=== PATIENT | male | born 1995 | race Caucasian/White ===

== ENCOUNTER 2022-01-20 13:52 | Emergency (ER) | payer SELFPAY ==
[2022-01-20 14:07] VITALS: BP 113/73; PULSE 78; RESP 18; TEMP 36.2; O2SAT 100
--- NOTE | 2022-01-20 14:13 | ED.EYEPROB ---
HPI - Eye Problem General Chief complaint: Eye Problems Stated complaint: lt eye pain Time Seen by Provider: 01/20/22 14:13 Source: patient Mode of arrival: ambulatory Limitations: no limitations History of Present Illness HPI Narrative: 26-year-old male presents with pain/irritation intermittent blurry vision to both eyes for 2 days. Patient reports that he wore eyeliner and mascara for the first time to a [employer] constitution party 3 days ago. Reports that it was irritating, and later cleaned off with make-up wipes. The following day was itching at eyes and then developed the pain and blurry vision a day later. He does not wear any glasses or contacts. All systems reviewed and negative except as noted above. Related Data Allergies Allergy/AdvReac Type Severity Reaction Status Date / Time No Known Allergies Allergy Verified 01/20/22 14:15 Review of Systems Review of Systems: CONSTITUTIONAL: Denies fever, chills, or sweats. EYES: Reports visual changes, pain. Denies redness, or discharge. ENT: Denies rhinorrhea, congestion, sore throat, or otalgia. CARDIOVASCULAR: Denies chest pain, palpitations, or edema. RESPIRATORY: Denies cough or dyspnea. GASTROINTESTINAL: Denies abdominal pain, nausea, vomiting, or diarrhea. GENITOURINARY: Denies dysuria or hematuria. SKIN: Denies rash or itching. MUSCULOSKELETAL: Denies back pain, joint pain, or myalgia. NEUROLOGIC: Denies headache, numbness, or weakness. PSYCHIATRIC: Denies anxiety or depression. All other systems reviewed are negative, except as documented in HPI. PMFSH Comments At time of signature, agree with nursing past medical, surgical, social and family history. There is no relevant family history pertinent to the presenting complaint. Exam Narrative: GENERAL: This is a well-nourished, well-developed patient, in no apparent distress. HEAD: normocephalic, atraumatic. EYES: PERRL. Sclera clear/white. Vision is grossly intact. Under fluorescein with Waters lamp corneal abrasion noted to both eyes, worse to left eye. EARS: External ears normal NOSE: External nose normal NECK: Neck supple, non-tender without lymphadenopathy, masses or thyromegaly. CARDIOVASCULAR: Regular rate and rhythm without murmurs, gallops, or rubs. RESPIRATORY: Clear to auscultation. Breath sounds equal bilaterally. No wheezes, rales, or rhonchi. SKIN: warm, Dry, intact with no suspicious lesions or rash, good texture and turgor. NEURO: awake, alert, and oriented to person, place and time. There were no obvious focal neurologic abnormalities. EXTREMITIES: Normal range of motion all extremities. Eyes: Eyes/upper lids images: 1. corneal abrasion 2. corneal abrasion Course Course Level of Care: Express Care Visit Vital Signs Vital signs: Vital Signs Temperature 36.2 C L 01/20/22 14:07 Pulse Rate 78 01/20/22 14:07 Respiratory Rate 18 01/20/22 14:07 Blood Pressure 113/73 01/20/22 14:07 Pulse Oximetry 100 01/20/22 14:07 Temperature 36.2 C L 01/20/22 14:07 Pulse Rate 78 01/20/22 14:07 Respiratory Rate 18 01/20/22 14:07 Blood Pressure 113/73 01/20/22 14:07 Pulse Oximetry 100 01/20/22 14:07 Procedures FB Removal Eye Foreign Body #1: Foreign Body Removal Date: 01/20/22 Foreign Body Removal Time: 14:39 Time Out performed: Yes Location: eye (L) and eye (R) Topical anesthetic used: tetracaine (1 drop each eye) Foreign body: other (No foreign body noted.) Evidence of corneal penetration: Yes (Corneal abrasion noted to both eyes.) Post-procedure medication: ophthalmic antibiotic (Prescribed erythromycin) and cycloplegic (Prescribed ketorolac drops) Patient tolerated procedure: well Foreign Body Removal Narrative: No foreign body was noted on exam. Corneal abrasion to both eyes. MDM - Eye Problem MDM Narrative Medical decision making narrative: Patient is aware of diagnosis, understands and agrees to treat
== END 2022-01-20 14:33 | disposition home or self-care (01) ==
PROVIDERS: Emergency Provider Nurse Practitioner Family
DX: S05.02XA Injury of conjunctiva and corneal abrasion without foreign body, left eye, initial encounter (principal); S05.01XA Injury of conjunctiva and corneal abrasion without foreign body, right eye, initial encounter; X58.XXXA Exposure to other specified factors, initial encounter
CPT/HCPCS: 99203; A9270; G0463